=== PATIENT | female | born 1990 | race African-American/Black ===

== ENCOUNTER → 2023-04-17 | Emergency (ER) | payer OTHER ==
[~2023-04-17] VITALS: Ht 165.1 cm; Wt 54.4 kg
[~2023-04-17] MED LIST: HYDR-3980 PO; HYDROMORPHONE 1 MG/1 ML DISP.SYRIN IV ONE; HYDROMORPHONE 1 MG/1 ML DISP.SYRIN ONE; IOHEXOL 300MG/ML 100 ML INFUS..BTL ONE; IV NORMAL SALINE 250 ML IV ONE; IV NS + KCL 40 MEQ 1000 ML BAG 1,000 ML IV ONE; IV NS + KCL 40 MEQ 1000 ML BAG IV ONE; LORAZEPAM 2 MG/1 ML VIAL IV ONE; LORAZEPAM 2 MG/1 ML VIAL ONE; METOCLOPRAMIDE HCL 10 MG/2 ML VIAL IV ONE; METOCLOPRAMIDE HCL 10 MG/2 ML VIAL ONE; PROC-11 PO; PROCHLORPERAZINE EDISYLATE 10 MG/2 ML VIAL IV ONE; PROCHLORPERAZINE EDISYLATE 10 MG/2 ML VIAL ONE; SWABABLE VALVE TRANSFER SET EA MC ONE; diphenhydrAMINE 50 MG/1 ML VIAL IV ONE; diphenhydrAMINE 50 MG/1 ML VIAL ONE
[2023-04-17 06:54] LABS: BASOPHILS % (AUTO) 0.2 % (0.0-2.0); EOSINOPHILS % (AUTO) 0.1 % (0.0-7.0); HEMATOCRIT 34.4 % (31.2-41.9); HEMOGLOBIN 11.3 g/dL (10.9-14.3); LYMPHOCYTES # (AUTO) 0.7 K/uL (0.8-4.8); LYMPHOCYTES % (AUTO) 8.1 % (20.5-51.5); MEAN CORPUSCULAR HEMOGLOBIN 27.4 uug (24.7-32.8); MEAN CORPUSCULAR HGB CONC 33 g/dL (32.3-35.6); MEAN CORPUSCULAR VOLUME 83.3 fL (75.5-95.3); MONOCYTES # (AUTO) 0.7 K/uL (0.1-1.30); MONOCYTES % (AUTO) 7.8 % (0.0-11.0); NEUTROPHILS # (AUTO) 7.3 K/uL (1.8-8.9); NEUTROPHILS % (AUTO) 83.8 % (38.5-71.5); PLATELET COUNT (AUTO) 262 K/uL (179-408); RED BLOOD CELL COUNT(AUTO) 4.12 MIL/uL (3.63-4.92); RED CELL DISTRIBUTION WIDTH 14.3 % (12.3-17.7); WHITE BLOOD COUNT (AUTO) 8.8 K/uL (3.8-11.8)
[2023-04-17 07:18] LABS: ALBUMIN 4.2 g/dL (3.4-5.0); BILIRUBIN,DIRECT 0.2 mg/dL (0.0-0.2); BILIRUBIN,TOTAL 0.6 mg/dL (0.2-1.0); CALCIUM 9.7 mg/dL (8.5-10.1); CREATININE 0.8 mg/dL (0.6-1.3); POTASSIUM 3.6 mmol/L (3.5-5.1); TOTAL PROTEIN, SERUM 8.6 g/dL (6.4-8.2)
[2023-04-17 07:19] LABS: DIFFERENTIAL COMMENT 1
[2023-04-17 08:01] LABS: *BILIRUBIN,URIN NEGATIVE (NEGATIVE); *BLOOD, URINE 2+ (NEGATIVE); *CLARITY,URINE CLEAR (CLEAR); *COLOR,URINE YELLOW (YELLOW); *KETONES,URINE NEGATIVE (NEGATIVE); *PROTEIN,URINE TRACE (NEGATIVE); *UROBILINOGEN,URINE 0.2 E.U./dl (NORMAL); LEUKOCYTE ESTERASE ,URINE NEGATIVE (NEGATIVE); NITRITE, URINE NEGATIVE (NEGATIVE); PH,URINE 5.5 (5.0-8.0); UGLUCOSE NEGATIVE (NEGATIVE)
[2023-04-17 08:06] LABS: *URINE HCG, QUAL NEGATIVE (NEGATIVE)
[2023-04-17 08:18] LABS: *AMPHETAMINE, URINE NEGATIVE (NEGATIVE); *BARBITURATE, URINE NEGATIVE (NEGATIVE); *BENZODIAZEPINE, URINE NEGATIVE (NEGATIVE); *CANNABINOID, URINE NEGATIVE (NEGATIVE); *COCCAINE, URINE NEGATIVE (NEGATIVE); *OPIATE, URINE POSITIVE (NEGATIVE); *PHENCYCLIDINE SCREEN,URINE NEGATIVE (NEGATIVE)
[2023-04-17 08:20] LABS: FENTANYL, URINE NEGATIVE (NEGATIVE)
[2023-04-17 09:17] LABS: BACTERIA,URINE MANY /HPF (NONE SEEN); SQUAMOUS EPITHELIAL CELL,UR MODERATE /HPF (NONE SEEN); URIC ACID CRYSTALS,URINE MODERATE /HPF (NONE SEEN); WBC,URINE 0-3 /HPF (0-3)
[2023-04-17 09:28] VITALS: O2SAT 100
== END | disposition home or self-care (01) ==
LOC: ER 05:40
DX: R11.2 Nausea with vomiting, unspecified (principal); R10.2 Pelvic and perineal pain; R10.13 Epigastric pain; Z79.899 Other long term (current) drug therapy
CPT/HCPCS: 99285; 74177; 96374; 96375; 80076; 80048; 84703; 83690; 83735; 85025; 84702; 36415; 96376; 87086; 80307; 81001; J1200 ×2; J2060; J2765; Q9967; J0780; J1170; A4606; A4663